=== PATIENT | female | born 1970 | race Caucasian/White ===

== ENCOUNTER 2018-12-02 02:53 | Emergency (ER) | payer OTHER ==
[2018-12-02 03:12] LABS: #Basophils 0.1 thou/uL (0.0-0.2); #Eosinphils 0.1 thou/uL (0.0-0.7); #Lymphocytes 3.9 thou/uL (1.20-3.40); #Monocytes 0.6 thou/uL (0.11-0.59); #Neutrophils 3.2 thou/uL (1.40-6.50); %Basophils 1.9 % (0.0-1.0); %Eosinophils 1.6 % (0.0-10.0); %Lymphocytes 48.8 % (21.0-51.0); %Monocytes 7.6 % (0.0-10.0); %Neutrophils 40.1 % (42.0-75.0); Hemoglobin 13.8 g/dL (12.0-16.0); Mean Corpuscular HGB CONC 33.4 g/dL (32.0-36.0); Mean Corpuscular Hemoglobin 26.7 pg (27.0-31.0); Mean Corpuscular Volume 79.9 fL (78.0-98.0); Mean Platelet Volume 7.4 fL (7.4-10.4); Platelet Count 291 thou/uL (130-400); RBC Distribution Width 15.4 % (11.5-14.5); Red Blood Cell (RBC) Count 5.18 mill/uL (4.20-5.40)
[2018-12-02 03:28] LABS: ALT (SGPT) 16 U/L (8-55); AST (SGOT) 23 U/L (5-34); Albumin 4.2 g/dL (3.5-5.0); Alkaline Phosphatase 44 U/L (40-150); Anion Gap 19 mmol/L (10-20); BUN (Urea Nitrogen) 4 mg/dL (7.0-18.7); Bilirubin, Total 0.1 mg/dL (0.2-1.2); Calc. Creatinine Clearance 0 mL/min (70-130); Carbon Dioxide 17 mmol/L (22-29); Chloride 104 mmol/L (98-107); Estimated GFR-MDRD Greater than 90; Globulin 3.4 g/dL (2.4-3.5); Glucose 92 mg/dL (70-105); Potassium 3.6 mmol/L (3.5-5.1); Protein, Total 7.6 g/dL (6.0-8.3); Sodium 136 mmol/L (136-145)
[2018-12-02] MEDS ORDERED: methylPREDNISolone Sod Succ/PF 125 MG/2 ML VIAL ONE (03:31)
--- NOTE | 2018-12-02 08:37 | RAD ---
CHEST 2 VIEWS: HISTORY: Shortness of breath. COMPARISON: 12/16/2014. FINDINGS: Normal cardiac silhouette. The pulmonary vessels and hilum are normal. Costophrenic angles are serena r. Chronic changes, without consolidation or mass. Lungs are hyperinflated. No pneumothorax or acu te osseous abnormalities. IMPRESSION: No acute cardiopulmonary process. POS: [facility]
== END 2018-12-02 05:22 | disposition home or self-care (01) ==
LOC: EEVIPCON 02:53 → SCSER 02:53
DX: J44.9 Chronic obstructive pulmonary disease, unspecified (principal); F10.129 Alcohol abuse with intoxication, unspecified; Z71.6 Tobacco abuse counseling; I48.91 Unspecified atrial fibrillation; I10 Essential (primary) hypertension; F17.210 Nicotine dependence, cigarettes, uncomplicated; Z79.899 Other long term (current) drug therapy; Z79.51 Long term (current) use of inhaled steroids
CPT/HCPCS: 71046; 80053; 80307; 83690; 83880; 84484; 85025; 85379; 93005; 94640; 94760; 96361; 96374; 99406; J2930; J7620

== ENCOUNTER 2019-08-03 13:07 | Outpatient (CLI) | payer OTHER ==
--- NOTE | 2019-08-03 14:02 | RAD ---
CHEST 2 VIEWS: HISTORY: Dyspnea. COMPARISON: 12/02/2018. FINDINGS: Heart size is within normal limits. The lungs are clear. No confluent pneumonia, overt edema, or pl eural effusion. IMPRESSION: No significant acute intrathoracic disease. Stable from prior study. POS: [facility]
== END 2019-08-03 13:08 | disposition home or self-care (01) ==
LOC: RAD 13:07
PROVIDERS: ATTEND Internal Medicine Pulmonary Disease
DX: R06.00 Dyspnea, unspecified (principal)
CPT/HCPCS: 71046

== ENCOUNTER 2019-10-14 11:47 | Emergency (ER) | payer OTHER, SELFPAY ==
[2019-10-14 12:14] LABS: #Basophils 0.1 thou/uL (0.0-0.2); #Eosinphils 0.1 thou/uL (0.0-0.7); #Lymphocytes 1.5 thou/uL (1.20-3.40); #Monocytes 0.6 thou/uL (0.11-0.59); #Neutrophils 4.3 thou/uL (1.40-6.50); %Basophils 1.7 % (0.0-1.0); %Eosinophils 1.7 % (0.0-10.0); %Lymphocytes 22.9 % (21.0-51.0); %Monocytes 8.5 % (0.0-10.0); %Neutrophils 65.2 % (42.0-75.0); Mean Corpuscular HGB CONC 33.2 g/dL (32.0-36.0); Mean Corpuscular Hemoglobin 27.1 pg (27.0-31.0); Mean Corpuscular Volume 81.6 fL (78.0-98.0); Mean Platelet Volume 7.9 fL (7.4-10.4); Platelet Count 283 thou/uL (130-400); RBC Distribution Width 15.3 % (11.5-14.5); Red Blood Cell (RBC) Count 5.17 mill/uL (4.20-5.40); White Blood Cell (WBC) Count 6.5 thou/uL (4.8-10.8)
[2019-10-14 12:40] LABS: ALT (SGPT) 13 U/L (8-55); AST (SGOT) 17 U/L (5-34); Albumin 4.2 g/dL (3.5-5.0); Alkaline Phosphatase 58 U/L (40-110); Anion Gap 13 mmol/L (10-20); BUN (Urea Nitrogen) 9 mg/dL (7.0-18.7); Bilirubin, Total 0.2 mg/dL (0.2-1.2); Calc. Creatinine Clearance 0 mL/min (70-130); Calcium 9.5 mg/dL (7.8-10.44); Carbon Dioxide 25 mmol/L (22-29); Chloride 105 mmol/L (98-107); Estimated GFR-MDRD 90; Globulin 3.6 g/dL (2.4-3.5); Glucose 97 mg/dL (70-105); Potassium 4.7 mmol/L (3.5-5.1); Protein, Total 7.8 g/dL (6.0-8.3); Sodium 138 mmol/L (136-145)
[2019-10-14 12:55] LABS: BHCG - Serum Negative (NEGATIVE); Pregs Control Background? CLEAR/WHITE (CLR/WHITE); Pregs Control Bar Appear? YES (CONTROL BAR)
--- NOTE | 2019-10-14 13:58 | CT ---
EXAM: ABDOMEN AND PELVIC CT SCAN WITH IV CONTRAST: 10/14/19 HISTORY: Rectal bleeding. Intermittent abdominal pain. FINDINGS: The lung bases appear clear. Visualized liver, gallbladder, pancreas, spleen, adrenal glands are unre markable. No renal calculus or acute obstruction. No large or small bowel obstruction. No CT evide nce for acute appendicitis. Two small right ovarian follicle cysts up to 1.[address] evidence for a cute appendicitis. Unremarkable lumbar spine other than some mild remote appearing vertical height lo ss at T12. IMPRESSION: No significant acute process in the abdomen or pelvis. Other findings as above. POS: [facility]
[2019-10-14] MEDS ORDERED: Iopamidol-370 76% 500 ML 1 ML ONE (16:31)
[2019-10-15 15:30] LABS: SARS-CoV-2 MS2 Positive; SARS-CoV-2 N Gene Negative; SARS-CoV-2 S Gene Negative; SARS-CoV-2 orf1ab Negative
== END 2019-10-14 15:01 | disposition home or self-care (01) ==
LOC: ERS 11:47
DX: K62.5 Hemorrhage of anus and rectum (principal); R19.7 Diarrhea, unspecified; I48.91 Unspecified atrial fibrillation; I49.9 Cardiac arrhythmia, unspecified; I10 Essential (primary) hypertension; J44.9 Chronic obstructive pulmonary disease, unspecified; F17.210 Nicotine dependence, cigarettes, uncomplicated; Z79.899 Other long term (current) drug therapy; Z20.828 Contact with and (suspected) exposure to other viral communicable diseases
CPT/HCPCS: 74177; 80053; 84703; 85025; 87635; Q9967; U0003

== ENCOUNTER 2022-07-30 08:17 | Outpatient (CLI) | payer BC | END 2022-07-30 08:18 | disposition home or self-care (01) | LOC: RAD 08:17 | PROVIDERS: ATTEND Internal Medicine Critical Care Medicine | DX: R06.00 Dyspnea, unspecified (principal); J44.9 Chronic obstructive pulmonary disease, unspecified | CPT/HCPCS: 71046 ==

== ENCOUNTER 2022-11-07 09:43 | Outpatient (CLI) | payer BC | END 2022-11-07 09:44 | disposition home or self-care (01) | LOC: BICMAMMO 09:43 | PROVIDERS: ATTEND Family Medicine | DX: N63.23 Unspecified lump in the left breast, lower outer quadrant (principal); M79.89 Other specified soft tissue disorders | CPT/HCPCS: 77066; G0279 ==